=== PATIENT | female | born 1950 | race Caucasian/White ===

== ENCOUNTER → 2020-12-16 | Outpatient (CLI) | payer MEDICARE ==
[2017-03-25 11:00] VITALS: BP 132/74
[~2020-12-16] MED LIST: FAMO-63 PO; LACT1CAP21 PO; LOPE1LIQ7 PO; [UNRECOGNIZED DRUG - REMARK]
--- NOTE | 2020-12-16 11:06 | RAD ---
MR LUMBAR SPINE [id number] Date: 12/16/2020 9:50 AM Indication: LUMBAR RADICULOPATHY Comparison: CT abdomen pelvis 03/15/2017. Technique: Multi-planar multi-weighted magnetic resonance imaging of the lumbar spine was performed w ithout intravenous contrast using the standard lumbar spine protocol. FINDINGS: Straightening of the lumbar lordosis. No acute fracture. Moderate multilevel degenerative disc desicc ation and disc height loss, severe at L4-5 on the left and at L2-3 on the right. Degenerative endplat e sclerosis and endplate edema at L2-3 and L4-5. L5 hemangioma. The conus terminates at a normal level. No abnormal signal is seen within the visualized distal spina l cord. No clumping of intrathecal nerve roots. No soft tissue abnormality in the visualized abdomen or pelvis. T12-L1: Disc bulge. Moderate facet arthropathy. Ligamentum flavum thickening. Mild spinal canal steno sis. No signal neural foraminal narrowing. L1-L2: Disc bulge. Mild facet arthropathy. No significant spinal stenosis or neural foraminal narrowi ng. L2-L3: Disc bulge. Mild facet arthropathy. Mild spinal stenosis and lateral recess narrowing. Moderat e right and mild left neural foraminal narrowing. L3-L4: Disc bulge. Mild facet arthropathy. No spinal stenosis. Mild left lateral recess narrowing. Mi ld to moderate bilateral neural foraminal narrowing. L4-L5: Disc bulge with left far lateral protrusion. Mild facet arthropathy. No spinal stenosis. Mild lateral recess narrowing. Moderate right and moderate to severe left neural foraminal narrowing. L5-S1: Disc bulge. Mild facet arthropathy. No significant spinal stenosis. Mild left neural foraminal narrowing. IMPRESSION: Moderate to severe lumbar spondylosis, worst at L2-3 and L4-5 as detailed above. No severe spinal can al stenosis. Electronically signed by: Stephen Chilel MD (12/16/2020 11:03 AM) [id number]
== END ==
LOC: MRI 09:40
PROVIDERS: ATTEND Family Medicine
DX: M47.26 Other spondylosis with radiculopathy, lumbar region (principal); M51.27 Other intervertebral disc displacement, lumbosacral region; M48.8X6 Other specified spondylopathies, lumbar region; M48.061 Spinal stenosis, lumbar region without neurogenic claudication; M40.46 Postural lordosis, lumbar region
CPT/HCPCS: 72148

== ENCOUNTER → 2021-01-24 | Outpatient (CLI) | payer MEDICARE ==
[2017-03-25 11:00] VITALS: BP 132/74
--- NOTE | 2021-01-24 13:37 | RAD ---
EXAM: PELVIS 1 VIEW. HISTORY: Right sacroiliac pain. COMPARISON: None. FINDINGS: No fractures are identified. The joint spaces and alignment of both hips are maintained. Th e sacroiliac joints are unremarkable for patient age. There are moderate to severe degenerative chau es at L4-5. IMPRESSION: 1. Lower lumbar degenerative changes. No clear degenerative change at the hips or sacroiliac joints f or patient age. Electronically signed by: Maryjo Oliveros MD (01/24/2021 1:35 PM) [id number]
== END ==
LOC: RAD 11:31
PROVIDERS: ATTEND Family Medicine
DX: M53.3 Sacrococcygeal disorders, not elsewhere classified (principal); M47.816 Spondylosis without myelopathy or radiculopathy, lumbar region
CPT/HCPCS: 72170